=== PATIENT | female | born 1985 | race Two or more races ===

== ENCOUNTER → 2018-08-02 18:07 | Outpatient (CLI) | payer OTHER ==
[~2018-08-02 18:07] MED LIST: INTESTINEX680 MG PO; ZANTAC300 MG PO
== END | disposition home or self-care (01) ==
LOC: LAB 08-01 15:57
DX: M06.09 Rheumatoid arthritis without rheumatoid factor, multiple sites (principal); M32.8 Other forms of systemic lupus erythematosus; N91.2 Amenorrhea, unspecified

== ENCOUNTER 2018-08-22 17:28 | Outpatient (CLI) | payer OTHER | END 2018-08-22 17:29 | disposition home or self-care (01) | LOC: LAB 17:28 | DX: M32.8 Other forms of systemic lupus erythematosus (principal) ==

== ENCOUNTER 2018-09-09 16:22 | Outpatient (CLI) | payer OTHER | END 2018-09-09 16:25 | disposition home or self-care (01) | LOC: LAB 16:22 | DX: J06.9 Acute upper respiratory infection, unspecified (principal); J11.1 Influenza due to unidentified influenza virus with other respiratory manifestations; J11.89 Influenza due to unidentified influenza virus with other manifestations ==

== ENCOUNTER 2018-09-15 15:34 | Outpatient (CLI) | payer OTHER ==
[~2018-09-15] VITALS: Ht 175.3 cm; Wt 129.3 kg
== END 2018-09-15 15:55 | disposition home or self-care (01) ==
LOC: OFIC 805 15:34
DX: J02.9 Acute pharyngitis, unspecified (principal); J04.0 Acute laryngitis; R09.81 Nasal congestion

== ENCOUNTER 2018-10-04 15:58 | Outpatient (CLI) | payer OTHER | END 2018-10-04 16:19 | disposition home or self-care (01) | LOC: SONOGRAMA 15:58 | DX: N64.4 Mastodynia (principal) ==

== ENCOUNTER → 2019-01-10 | Emergency (ER) | payer OTHER | END | disposition left against medical advice (07) | LOC: ER 18:29 | DX: Z53.20 Procedure and treatment not carried out because of patient's decision for unspecified reasons (principal) ==

== ENCOUNTER 2019-01-11 06:24 | Emergency (ER) | payer OTHER ==
[~2019-01-11] VITALS: Ht 175.3 cm; Wt 129.3 kg
== END 2019-01-11 10:20 | disposition home or self-care (01) ==
LOC: ER 06:24
DX: M79.18 Myalgia, other site (principal)

== ENCOUNTER 2019-01-26 07:19 | Outpatient (CLI) | payer OTHER | END 2019-01-26 07:21 | disposition home or self-care (01) | LOC: LAB 07:19 | DX: M54.89 Other dorsalgia (principal); R07.89 Other chest pain; M32.10 Systemic lupus erythematosus, organ or system involvement unspecified; E78.2 Mixed hyperlipidemia; I10 Essential (primary) hypertension ==

== ENCOUNTER 2019-03-02 07:48 | Outpatient (CLI) | payer OTHER | END 2019-03-02 08:16 | disposition home or self-care (01) | LOC: LAB 07:48 | DX: M06.89 Other specified rheumatoid arthritis, multiple sites (principal); M32.19 Other organ or system involvement in systemic lupus erythematosus; D68.61 Antiphospholipid syndrome; M35.00 Sjogren syndrome, unspecified ==

== ENCOUNTER 2019-04-12 09:36 | Outpatient (CLI) | payer OTHER | END 2019-04-12 09:40 | disposition home or self-care (01) | LOC: LAB 09:36 | DX: J11.1 Influenza due to unidentified influenza virus with other respiratory manifestations (principal); R51 Headache ==

== ENCOUNTER 2019-04-19 14:46 | Emergency (ER) | payer OTHER ==
[~2019-04-19] VITALS: Ht 175.3 cm; Wt 129.3 kg
[2019-04-19] MEDS ORDERED: ZITHROMAX1 GM (14:57)
== END 2019-04-19 17:31 | disposition home or self-care (01) ==
LOC: ER 14:46
DX: G43.809 Other migraine, not intractable, without status migrainosus (principal)

== ENCOUNTER 2019-05-04 15:09 | Outpatient (CLI) | payer OTHER ==
[~2019-05-04 15:09] MED LIST changes: +ZITHROMAX1 GM
== END 2019-05-04 15:14 | disposition home or self-care (01) ==
LOC: MRI 15:09
DX: G43.009 Migraine without aura, not intractable, without status migrainosus (principal)
CPT/HCPCS: 70551

== ENCOUNTER → 2019-12-22 07:30 | Outpatient (CLI) | payer OTHER | END | disposition home or self-care (01) | LOC: LAB 07:30 | PROVIDERS: ATTEND Obstetrics & Gynecology | DX: E03.8 Other specified hypothyroidism (principal); Z00.00 Encounter for general adult medical examination without abnormal findings; I10 Essential (primary) hypertension; E78.00 Pure hypercholesterolemia, unspecified; N39.0 Urinary tract infection, site not specified; Z11.4 Encounter for screening for human immunodeficiency virus [HIV]; Z12.11 Encounter for screening for malignant neoplasm of colon; Z21 Asymptomatic human immunodeficiency virus [HIV] infection status; R79.89 Other specified abnormal findings of blood chemistry ==

== ENCOUNTER → 2020-04-04 | Outpatient (CLI) | payer OTHER | END | disposition home or self-care (01) | LOC: PPH VACUNA | DX: Z23 Encounter for immunization (principal) ==

== ENCOUNTER 2020-04-10 15:39 | Outpatient (CLI) | payer OTHER | END 2020-04-10 15:54 | disposition home or self-care (01) | LOC: RAD 15:39 | PROVIDERS: ATTEND General Practice | DX: R05 Cough (principal) ==

== ENCOUNTER → 2021-05-23 08:26 | Outpatient (CLI) | payer OTHER | END | disposition home or self-care (01) | LOC: LAB 07:39 | PROVIDERS: ATTEND Internal Medicine Rheumatology | DX: M32.19 Other organ or system involvement in systemic lupus erythematosus (principal); I25.10 Atherosclerotic heart disease of native coronary artery without angina pectoris ==

== ENCOUNTER 2021-08-20 07:59 | Outpatient (CLI) | payer OTHER | END 2021-08-20 08:01 | disposition home or self-care (01) | LOC: LAB 07:59 | PROVIDERS: ATTEND Internal Medicine Endocrinology, Diabetes & Metabolism | DX: E78.2 Mixed hyperlipidemia (principal); E11.65 Type 2 diabetes mellitus with hyperglycemia; E03.9 Hypothyroidism, unspecified; I10 Essential (primary) hypertension; E55.9 Vitamin D deficiency, unspecified; M32.9 Systemic lupus erythematosus, unspecified ==

== ENCOUNTER 2021-08-22 10:33 | Outpatient (CLI) | payer OTHER | END 2021-08-22 10:43 | disposition home or self-care (01) | LOC: MAMO-SONO 10:33 | PROVIDERS: ATTEND Surgery | DX: N60.11 Diffuse cystic mastopathy of right breast (principal); N60.12 Diffuse cystic mastopathy of left breast ==

== ENCOUNTER 2021-09-19 14:21 | Outpatient (CLI) | payer OTHER | END 2021-09-19 14:28 | disposition home or self-care (01) | LOC: SONOGRAMA 14:21 | PROVIDERS: ATTEND Surgery | DX: N60.11 Diffuse cystic mastopathy of right breast (principal); N60.12 Diffuse cystic mastopathy of left breast; N94.0 Mittelschmerz; R10.2 Pelvic and perineal pain; N94.89 Other specified conditions associated with female genital organs and menstrual cycle ==

== ENCOUNTER 2021-10-03 08:18 | Outpatient (CLI) | payer OTHER | END 2021-10-03 08:31 | disposition home or self-care (01) | LOC: LAB 08:18 | PROVIDERS: ATTEND Obstetrics & Gynecology | DX: M06.9 Rheumatoid arthritis, unspecified (principal); M32.19 Other organ or system involvement in systemic lupus erythematosus; D68.61 Antiphospholipid syndrome; M35.00 Sjogren syndrome, unspecified; Z00.00 Encounter for general adult medical examination without abnormal findings; I10 Essential (primary) hypertension; E03.9 Hypothyroidism, unspecified; E78.9 Disorder of lipoprotein metabolism, unspecified; N39.0 Urinary tract infection, site not specified; Z11.4 Encounter for screening for human immunodeficiency virus [HIV]; Z12.11 Encounter for screening for malignant neoplasm of colon; E55.9 Vitamin D deficiency, unspecified; Z21 Asymptomatic human immunodeficiency virus [HIV] infection status; R79.9 Abnormal finding of blood chemistry, unspecified; R79.89 Other specified abnormal findings of blood chemistry ==

== ENCOUNTER 2021-11-12 09:32 | Outpatient (CLI) | payer OTHER | END 2021-11-12 09:38 | disposition home or self-care (01) | LOC: SONOGRAMA 09:32 | PROVIDERS: ATTEND Surgery | DX: N60.11 Diffuse cystic mastopathy of right breast (principal); N60.12 Diffuse cystic mastopathy of left breast ==

== ENCOUNTER 2022-04-01 12:54 | Outpatient (CLI) | payer OTHER | END 2022-04-01 12:59 | disposition home or self-care (01) | LOC: PPH VACUNA 12:54 | PROVIDERS: ATTEND Emergency Medicine Pediatric Emergency Medicine | DX: Z23 Encounter for immunization (principal) ==

== ENCOUNTER 2023-01-27 12:02 | Outpatient (CLI) | payer OTHER | END 2023-01-27 12:09 | disposition home or self-care (01) | LOC: MAMO-SONO 12:02 | PROVIDERS: ATTEND Surgery | DX: N60.11 Diffuse cystic mastopathy of right breast (principal); N60.12 Diffuse cystic mastopathy of left breast; Z12.31 Encounter for screening mammogram for malignant neoplasm of breast ==

== ENCOUNTER → 2023-06-09 08:25 | Outpatient (CLI) | payer OTHER ==
[2023-06-09 08:53] LABS: HEMATOCRIT 37.6 % (36.0-45.00); HEMOGLOBIN 12.7 g/dL (12.0-15.00); MEAN CELL VOLUME 83.4 fL (80.00-100.00); MEAN CORPUSCULAR HEMOGLOBIN 28.1 pg (27.00-32.0); MEAN CORPUSCULAR HGB CONC 33.7 g/dl (32.0-36.0); PLATELET COUNT 377 K/uL (150-450); RED BLOOD COUNT 4.51 M/uL (4.00-6.00); RED CELL DISTRIBUTION WIDTH 14.8 % (11.5-14.5)
[2023-06-09 09:01] LABS: ERYTHROCYTE SEDIMENTATION RATE 34 mm/hr
[2023-06-09 09:25] LABS: ALBUMIN 3.2 gm/dL (3.4-5.0); ALKALINE PHOSPHATASE 87 U/L (50-136); ALT/SGPT 23 U/L (12-78); ANION GAP 8 (10.0-20.0); AST/SGOT 10 U/L (15-37); BILIRUBIN TOTAL 0.43 mg/dL (0.3-1.2); BLOOD UREA NITROGEN 11 mg/dL (7-18); BUN CREA RATIO 13 (7.0-25.0); CARBON DIOXIDE 31 mEq/L (21-32); CHLORIDE 104 mmol/L (98-107); CREATININE SERUM 0.88 mg/dL (0.55-1.02); GFR 71.53; GLOBULINA 4.1 G/DL (2.4-3.5); GLUCOSE FASTING 137 mg/dL (65-100); HDL 51 mg/dl (40-60); OSMOLALITY SERUM 277 MOSM/KG (275-295); POTASSIUM 4.66 mEq/L (3.5-5.1); SODIUM 138 mmol/L (136-145); T4 FREE 1.09 NG/ML (0.76-1.46); TOTAL PROTEIN 7.3 gm/dL (6.4-8.2); TRIGLYCERIDES 160 mg/dL (0-150); VLDL 32 (0-39)
[2023-06-09 09:35] LABS: CHOL HDL RATIO 5.1 (0-5.0); LDL 179 mg/dl (0-130)
[2023-06-09 09:36] LABS: CHOLESTEROL 262 mg/dL (0-200); HCG QUANTITATIVE < 1 mUI/mL (1-3)
[2023-06-09 09:40] LABS: URINE APPEARANCE Clear; URINE BILIRRUBIN Negative (NEGATIVE); URINE BLOOD Negative; URINE COLOR Yellow; URINE GLUCOSE Negative (NEGATIVE); URINE LEUKOCYTE Negative; URINE NITRATE Negative; URINE PROTEIN Negative (NEGATIVE); URINE UROBILINOGEN 0.2 E.U./dl
[2023-06-09 09:45] LABS: URINE EPITHELIAL CELLS 4.7 uL (0.0-38.8); URINE RBC 3.1 uL (0.0-20.8); URINE WBC 2.3 uL (0.0-23.2)
== END | disposition home or self-care (01) ==
LOC: LAB 08:25
PROVIDERS: ATTEND Surgery
DX: Z00.00 Encounter for general adult medical examination without abnormal findings (principal); E78.2 Mixed hyperlipidemia; R79.9 Abnormal finding of blood chemistry, unspecified; E11.65 Type 2 diabetes mellitus with hyperglycemia; N39.0 Urinary tract infection, site not specified; Z11.4 Encounter for screening for human immunodeficiency virus [HIV]; Z12.11 Encounter for screening for malignant neoplasm of colon; E55.9 Vitamin D deficiency, unspecified; Z21 Asymptomatic human immunodeficiency virus [HIV] infection status; E03.8 Other specified hypothyroidism; N91.2 Amenorrhea, unspecified

== ENCOUNTER 2023-06-24 11:02 | Outpatient (CLI) | payer OTHER | END 2023-06-24 11:05 | disposition home or self-care (01) | LOC: SONOGRAMA 11:02 | PROVIDERS: ATTEND Surgery | DX: M54.42 Lumbago with sciatica, left side (principal); R22.32 Localized swelling, mass and lump, left upper limb; R10.2 Pelvic and perineal pain; M79.671 Pain in right foot ==

== ENCOUNTER 2024-01-14 18:42 | Emergency (ER) | payer OTHER ==
[~2024-01-14] VITALS: Ht 175.3 cm; Wt 126.1 kg
[2024-01-14] MEDS ORDERED: OZEMPIC0.25 MG/02 SQ (19:17)
== END 2024-01-14 20:35 | disposition home or self-care (01) ==
LOC: ER 18:43
DX: B34.9 Viral infection, unspecified (principal)

== ENCOUNTER 2024-02-10 11:30 | Outpatient (CLI) | payer OTHER ==
[~2024-02-10 11:30] MED LIST changes: +OZEMPIC0.25 MG/02 SQ
== END 2024-02-10 11:40 | disposition home or self-care (01) ==
LOC: MAMO-SONO 11:30
PROVIDERS: ATTEND Surgery
DX: N60.11 Diffuse cystic mastopathy of right breast (principal); N60.12 Diffuse cystic mastopathy of left breast

== ENCOUNTER → 2024-04-28 10:18 | Outpatient (CLI) | payer OTHER ==
[2024-04-28 08:37] LABS: HEMATOCRIT 37.9 % (36.0-45.00); HEMOGLOBIN 12.9 g/dL (12.0-15.00); MEAN CELL VOLUME 82.4 fL (80.00-100.00); MEAN CORPUSCULAR HEMOGLOBIN 28.1 pg (27.00-32.0); MEAN CORPUSCULAR HGB CONC 34.1 g/dl (32.0-36.0); PLATELET COUNT 400 K/uL (150-450); RED CELL DISTRIBUTION WIDTH 14.1 % (11.5-14.5)
[2024-04-28 08:38] LABS: PH,URINE 6.5 (5.0-8.0); URINE APPEARANCE Clear; URINE BILIRRUBIN Negative (NEGATIVE); URINE BLOOD Negative; URINE COLOR Yellow; URINE GLUCOSE Negative (NEGATIVE); URINE KETONE Negative (NEGATIVE); URINE LEUKOCYTE Small; URINE NITRATE Negative; URINE PROTEIN Negative (NEGATIVE); URINE UROBILINOGEN 0.2 E.U./dl
[2024-04-28 08:42] LABS: URINE BACTERIA 862.9 uL (0.0-1933); URINE EPITHELIAL CELLS 28.4 uL (0.0-38.8); URINE RBC 10.5 uL (0.0-20.8); URINE WBC 31.6 uL (0.0-23.2)
[2024-04-28 08:59] LABS: URINE CAST 0.15 uL (0.0-1.40)
[2024-04-28 09:33] LABS: ALBUMIN 3.7 gm/dL (3.4-5.0); ALKALINE PHOSPHATASE 102 U/L (50-136); ALT/SGPT 22 U/L (12-78); ANION GAP 11 (10.0-20.0); AST/SGOT 14 U/L (15-37); BLOOD UREA NITROGEN 12 mg/dL (7-18); BUN CREA RATIO 15 (7.0-25.0); CALCIUM 9.2 mg/dL (8.5-10.1); CARBON DIOXIDE 26 mEq/L (21-32); CHLORIDE 106 mmol/L (98-107); CHOL HDL RATIO 3.6 (0-5.0); CHOLESTEROL 167 mg/dL (0-200); CREATININE SERUM 0.82 mg/dL (0.55-1.02); GFR 77.21; GLUCOSE FASTING 92 mg/dL (65-100); HDL 47 mg/dl (40-60); LDL 102 mg/dl (0-130); OSMOLALITY SERUM 275 MOSM/KG (275-295); SODIUM 138 mmol/L (136-145); T4 FREE 1.13 NG/ML (0.76-1.46); TOTAL PROTEIN 7.7 gm/dL (6.4-8.2); TRIGLYCERIDES 91 mg/dL (0-150); VLDL 18 (0-39)
[2024-04-28 09:36] LABS: HCG QUANTITATIVE < 1 mUI/mL (1-3)
[2024-04-30 06:35] LABS: LEUTEINIZING HORMONE 3.3 mIU/mL (.); PROLACTIN 56.9 ng/mL (4.8-33.4)
== END | disposition home or self-care (01) ==
LOC: LAB 10:18
PROVIDERS: ATTEND Surgery
DX: N91.0 Primary amenorrhea (principal); Z00.00 Encounter for general adult medical examination without abnormal findings; I10 Essential (primary) hypertension; E03.9 Hypothyroidism, unspecified; N39.0 Urinary tract infection, site not specified; Z11.4 Encounter for screening for human immunodeficiency virus [HIV]; Z12.11 Encounter for screening for malignant neoplasm of colon; E55.9 Vitamin D deficiency, unspecified; Z21 Asymptomatic human immunodeficiency virus [HIV] infection status; R79.9 Abnormal finding of blood chemistry, unspecified; R79.89 Other specified abnormal findings of blood chemistry

== ENCOUNTER 2024-08-15 07:15 | Outpatient (CLI) | payer OTHER | END 2024-08-15 07:25 | disposition home or self-care (01) | LOC: PPH VACUNA 07:15 | PROVIDERS: ATTEND Emergency Medicine Pediatric Emergency Medicine | DX: Z23 Encounter for immunization (principal) ==

== ENCOUNTER 2024-09-20 14:40 | Outpatient (CLI) | payer OTHER | END 2024-09-20 14:45 | disposition home or self-care (01) | LOC: MRI 14:40 | PROVIDERS: ATTEND Internal Medicine Endocrinology, Diabetes & Metabolism | DX: E22.1 Hyperprolactinemia (principal) | CPT/HCPCS: 70553 ==

== ENCOUNTER → 2024-10-04 | Outpatient (CLI) | payer OTHER | END | disposition home or self-care (01) | LOC: SONOGRAMA 09:28 | PROVIDERS: ATTEND Obstetrics & Gynecology | DX: N94.0 Mittelschmerz (principal); R10.2 Pelvic and perineal pain; N94.89 Other specified conditions associated with female genital organs and menstrual cycle ==

== ENCOUNTER 2024-10-24 14:59 | Outpatient (CLI) | payer OTHER | END 2024-10-24 15:03 | disposition home or self-care (01) | LOC: SONOGRAMA 14:59 → MAMO-SONO 14:59 | PROVIDERS: ATTEND Obstetrics & Gynecology | DX: N63 Unspecified lump in breast (principal); N64.59 Other signs and symptoms in breast; N64.9 Disorder of breast, unspecified ==

== ENCOUNTER 2024-11-03 14:38 | Outpatient (CLI) | payer OTHER | END 2024-11-03 14:42 | disposition home or self-care (01) | LOC: RAD 14:38 | PROVIDERS: ATTEND Surgery | DX: D24.2 Benign neoplasm of left breast (principal); N60.11 Diffuse cystic mastopathy of right breast; N60.12 Diffuse cystic mastopathy of left breast ==

== ENCOUNTER 2025-05-29 14:28 | Outpatient (CLI) | payer OTHER | END 2025-05-29 14:30 | disposition home or self-care (01) | LOC: MAMO-SONO 14:28 | PROVIDERS: ATTEND Surgery | DX: N60.11 Diffuse cystic mastopathy of right breast (principal); N60.12 Diffuse cystic mastopathy of left breast ==